=== PATIENT | female | born 1970 | race Caucasian/White ===

== ENCOUNTER 2017-08-28 12:51 | Emergency (ER) | payer SELFPAY ==
[~2017-08-28] VITALS: Ht 167.6 cm; Wt 230.0 kg
[2017-08-28] MEDS ORDERED: CYCL10 PO (13:28)
[2017-08-28] MEDS ORDERED: IBUP800 PO (14:46)
== END 2017-08-28 14:53 | disposition home or self-care (01) ==
LOC: ER 12:51
DX: M43.6 Torticollis (principal)
CPT/HCPCS: 99282

== ENCOUNTER 2021-09-13 16:39 | Emergency (ER) | payer OTHER ==
[~2021-09-13] VITALS: Ht 167.6 cm; Wt 104.3 kg
[~2021-09-13 16:39] MED LIST: CYCL10 PO; IBUP800 PO
[2021-09-13 17:48] LABS: BASOPHILS ABSOLUTE AUTO 0.03 K/mm3 (0.00-0.23); BASOPHILS PERCENT AUTO 0 % (0-2); EOSINOPHILS PERCENT AUTO 3 % (0-6); Hematocrit 38.1 % (33.0-51.0); Hemoglobin 12.4 g/dL (11.5-16.0); IMMATURE GRAN ABSOLUTE AUTO 0.02 K/mm3 (0.00-0.10); IMMATURE GRAN PERCENT AUTO 0 % (0-1); LYMPHOCYTES ABSOLUTE AUTO 1.74 K/mm3 (0.84-5.20); LYMPHOCYTES PERCENT AUTO 22 % (21-46); MONOCYTES ABSOLUTE AUTO 0.63 K/mm3 (0.16-1.47); MONOCYTES PERCENT AUTO 8 % (4-13); Mean Corpuscular HGB 28.8 pg (26.0-34.0); Mean Corpuscular HGB Conc 32.5 g/dL (31.5-36.5); Mean Corpuscular Volume 88 fL (80-100); Mean Platelet Volume 11.9 fL (9.1-12.4); NEUTROPHILS ABSOLUTE AUTO 5.46 K/mm3 (1.96-9.15); NEUTROPHILS PERCENT AUTO 68 % (41-73); Platelet Count 224 K/mm3 (150-400); RDW Coefficient Variation 13.9 % (11.7-14.2); Red Blood Cell Count 4.31 M/mm3 (3.80-5.20); White Blood Cell Count 8.08 K/mm3 (4.00-11.30)
[2021-09-13 17:50] LABS: Source, Urine Clean Catch
[2021-09-13 17:59] LABS: Bilirubin, Urine Neg (Neg); Blood, Urine 3+ (Neg); Glucose Qualitative, Urine Neg (Neg); Ketones, Urine Neg (Neg); Leukocyte Esterase, Urine 1+ (Neg); Nitrite, Urine Neg (Neg); Protein, Urine 2+ (Neg); Urobilinogen, Urine NORM (Normal)
[2021-09-13 18:04] LABS: Appearance, Urine Clear (Clear); Color, Urine Yellow (P-Yellow)
[2021-09-13 18:08] LABS: Alanine Aminotransfer (ALT/SGP 30 U/L (12-78); Albumin, Blood 3.9 g/dL (3.4-5.0); Albumin/Globulin Ratio 1.1 (0.8-1.8); Alk Phos 88 U/L (50-136); Anion Gap 3 mmol/L (6-16); Aspartate Aminotrans (AST/SGOT 14 U/L (12-37); Bilirubin, Total 0.2 mg/dL (0.1-1.0); Blood Urea Nitrogen 17 mg/dL (8-24); Bun/Creatinine Ratio 25.4 (12.0-20.0); CO2, Blood 29 mmol/L (21-32); Calcium, Blood 9.2 mg/dL (8.5-10.1); Chloride, Blood 109 mmol/L (98-108); Creatinine, Blood 0.67 mg/dL (0.40-1.00); Globulin, Blood 3.5 g/dL (2.2-4.0); Glomerular Filtration Rate >60 (60-); Glucose, Blood 117 mg/dL (70-99); Potassium, Blood 3.5 mmol/L (3.5-5.5); Sodium, Blood 141 mmol/L (136-145); Total Protein, Blood 7.4 g/dL (6.4-8.2)
[2021-09-13 18:10] LABS: Bacteria Many /hpf; Squamous Epithelial Cells Rare /hpf (Few)
[2021-09-13 18:11] LABS: Transitional Epithelial Cells Rare /hpf (0-Rare)
[2021-09-13] MEDS ORDERED: AMOCLA875 PO (19:44)
== END 2021-09-13 19:59 | disposition home or self-care (01) ==
LOC: ER 16:39
PROVIDERS: Emergency Medicine; Physician Assistant
DX: R10.30 Lower abdominal pain, unspecified (principal); R30.0 Dysuria; M54.50 Low back pain, unspecified
CPT/HCPCS: 36415; 74177; 80053; 81001; 83690; 84702; 85025; 87077; 87086; 87186; A9270; J1885; J2405; J7030; Q9967

== ENCOUNTER 2022-04-17 17:36 | Emergency (ER) | payer OTHER ==
[~2022-04-17] VITALS: Ht 167.6 cm; Wt 111.1 kg
[~2022-04-17 17:36] MED LIST changes: +AMOCLA875 PO
[2022-04-17] MEDS ORDERED: LIDO700A20 TOP (19:47)
== END 2022-04-17 20:02 | disposition home or self-care (01) ==
LOC: ER 17:36
DX: M54.50 Low back pain, unspecified (principal); Z79.899 Other long term (current) drug therapy; Z87.891 Personal history of nicotine dependence
CPT/HCPCS: A9270; J1885